=== PATIENT | male | born 1985 | race African-American/Black ===

== ENCOUNTER 2016-10-02 20:11 | Emergency (ER) | payer MEDICAID | END 2016-10-02 22:16 | disposition home or self-care (01) | LOC: D.ER 20:11 | DX: S61.200A Unspecified open wound of right index finger without damage to nail, initial encounter (principal); F17.200 Nicotine dependence, unspecified, uncomplicated ==

== ENCOUNTER 2018-05-27 22:01 | Emergency (ER) | payer MEDICAID ==
[~2018-05-27] VITALS: Ht 182.9 cm; Wt 93.2 kg
[2018-05-27 22:05] VITALS: Ht 182.9 cm; Wt 93.2 kg
[2018-05-27] MEDS ORDERED: BACTROBAN CREAM15 GM TOPICAL (23:22)
[2018-05-27] MEDS ORDERED: SULFAMETHOXAZOL1 TA3 PO (23:22)
[2018-05-27 23:32] VITALS: BP 148/80
== END 2018-05-27 23:32 | disposition home or self-care (01) ==
LOC: D.ER 22:01
DX: L73.2 Hidradenitis suppurativa (principal)

== ENCOUNTER 2019-02-12 00:09 | Observation (INO) | payer SELFPAY ==
[2019-02-12] VITALS (9 sets, daily range): BP systolic 110–140; BP diastolic 73–733; Ht 185.4 cm; Wt 95.5 kg
[~2019-02-12] VITALS: Ht 185.4 cm; Wt 95.5 kg
[~2019-02-12 00:09] MED LIST: BACTROBAN CREAM15 GM TOPICAL; SULFAMETHOXAZOL1 TA3 PO
[2019-02-12 00:37] LABS: BASOPHILS 0.3 % (0-2); HEMATOCRIT 45.9 % (42.0-54.0); HEMOGLOBIN 15.8 g/dL (13.5-17.5); IMMATURE GRANULOCYTES 0.4 % (0-5); LYMPHOCYTES 39.4 % (15-50); MCH 30.3 pg (26.0-34.0); MCHC 34.4 g/dL (31.0-37.0); MCV 88.1 fL (80.0-100.0); NEUTROPHILS 51.9 % (40-80); PLATELET COUNT 271 10x3/uL (130-400); RBC 5.21 10x6/uL (4.20-6.10); RDW 13.4 % (11.5-14.5); WBC 7.4 10x3/uL (4.8-10.8)
[2019-02-12 00:42] LABS: APTT 34.1 SECONDS (22.8-39.4); INR 1.03 (0.85-1.17)
[2019-02-12 00:44] LABS: CALC OSMOLALITY 287 mosm/kg (275-300); CALCIUM 9.1 mg/dL (8.5-10.1); CARBON DIOXIDE 30.8 mmol/L (21.0-32.0); CHLORIDE - SERUM 104 mmol/L (98-107); CREATININE - SERUM 1.4 mg/dL (0.6-1.3); GLUCOSE 147 mg/dL (74-106); POTASSIUM - SERUM 3.7 mmol/L (3.5-5.1); SODIUM 143 mmol/L (136-145); UREA NITROGEN 13 mg/dL (7-18); eGFR NON AFRICAN AMERICAN 63 mL/min (90-120)
[2019-02-12 01:00] LABS: ALKALINE PHOSPHATASE 60 U/L (46-116); ALT (SGPT) 44 U/L (10-68); BILIRUBIN - TOTAL 0.49 mg/dL (0.2-1.3); CKMB 2.4 U/L (0.0-3.6); CREATINE KINASE 599 UL (21-232); MAGNESIUM - SERUM 2.1 mg/dL (1.8-2.4); PROTEIN - SERUM 7.7 g/dL (6.4-8.2)
[2019-02-12 01:04] LABS: TROPONIN-I < 0.017 ng/mL (0.000-0.060)
[2019-02-12 01:13] LABS: ALBUMIN 4.2 g/dL (3.4-5.0)
--- NOTE | 2019-02-12 03:22 | NUR ---
RECIEVED REPORT FROM [facility], PT ARRIVED BY WHEEL CHAIR WITH FAMILY ON ARRIVAL. VSS, AAOX4, NO S/S OF RR DISTRESS. PT COMPLAIN OF CHEST PAIN 8/10, NON-RADIATING. PRN MORPHINE GIVEN. NS INFUSING AT 70MLS/HR. PT PLACED ON TELEMETRY, HR 85, NORMAL SINUS. INITIAL ASSESSMENT COMPLETED. PT IS A GOOD HX. PT DENIES ANY FURTHER NEEDS AT THIS TIME. PT PLACED NPO PER CARDIOLOGY CONSULT. WILL CPOC. CL WITHIN REACH, BED IN LOWEST POSITION.
[2019-02-12 06:09] LABS: BASOPHILS 0.2 % (0-2); EOSINOPHILS 3.5 % (0-7); HEMATOCRIT 44.6 % (42.0-54.0); HEMOGLOBIN 15.1 g/dL (13.5-17.5); IMMATURE GRANULOCYTES 0.3 % (0-5); MCH 29.9 pg (26.0-34.0); MCHC 33.9 g/dL (31.0-37.0); MCV 88.3 fL (80.0-100.0); MEAN PLATELET VOLUME 8.9 fL (7.4-10.4); MONOCYTES 5.7 % (2-11); NEUTROPHILS 45.3 % (40-80); PLATELET COUNT 251 10x3/uL (130-400); RBC 5.05 10x6/uL (4.20-6.10); RDW 13.5 % (11.5-14.5); WBC 6.6 10x3/uL (4.8-10.8)
[2019-02-12 06:34] LABS: ALBUMIN 3.5 g/dL (3.4-5.0); ALKALINE PHOSPHATASE 49 U/L (46-116); ALT (SGPT) 38 U/L (10-68); BILIRUBIN - TOTAL 0.54 mg/dL (0.2-1.3); CALC OSMOLALITY 278 mosm/kg (275-300); CALCIUM 8.5 mg/dL (8.5-10.1); CHLORIDE - SERUM 107 mmol/L (98-107); CREATINE KINASE 458 UL (21-232); CREATININE - SERUM 1.3 mg/dL (0.6-1.3); MAGNESIUM - SERUM 2.1 mg/dL (1.8-2.4); PHOSPHOROUS 4.6 mg/dL (2.5-4.9); POTASSIUM - SERUM 3.9 mmol/L (3.5-5.1); PROTEIN - SERUM 6.8 g/dL (6.4-8.2); SODIUM 140 mmol/L (136-145); TROPONIN-I < 0.017 ng/mL (0.000-0.060); UREA NITROGEN 13 mg/dL (7-18); eGFR NON AFRICAN AMERICAN 68 mL/min (90-120)
[2019-02-12 06:36] LABS: GLUCOSE 91 mg/dL (74-106)
--- NOTE | 2019-02-12 07:10 | NUR ---
REPORT RECEIED FROM [employer] ASSURANCE OFFICER AND PATIENT CARE ASSUMED. PATIENT LAYING IN BED ON BACK AWAKE, ALERT ORIENTED X 4. PATIENT IS STABLE AND VSS. PATIENT DENIES ANY NEEDS OR PAIN. WILL CONTINUE WITH PLAN OF CARE. SR UP X 2 BED IN LOW POSITION AND CALL LIGHT IN REACH.
--- NOTE | 2019-02-12 08:00 | NUR ---
DR ZAVALA IN ROOM. NEW ORDERS RECEVIED.
--- NOTE | 2019-02-12 10:41 | CN ---
PATIENT NAME:RIGO SANCHEZ MEDICAL RECORD: [id number] : 89 LOCATION:D. D.2123 ADMIT DATE: 02/12/19 ACCOUNT: [id number] CONSULTING PHYSICIAN: SARAH ZAVALA MD REFERRING PHYSICIAN: LI ALMEIDA MD DATE OF CONSULTATION: 02/12/2019 DIAGNOSES: 1. Chest pain. 2. Abnormal ECG. 3. Hypertension. 4. Family history of coronary artery disease. HISTORY OF PRESENT ILLNESS: Mr. Sanchez presents with chest pain. His chest pain is atypical. It was sharp. It was definitely positional with changing the position of his left arm. It was a stabbing-like pain. It was centered in the anterior chest. His EKG; however, suggests inferior ischemia with T-wave inversions inferolaterally. He has not had a previous EKG that he knows of. He is not having any chest pain now. His troponin is normal. His chest pain has been going on only for a few weeks. He has had 3 discrete episodes of the pain, each lasting approximately 1 hour, each the same as described. PHYSICAL EXAMINATION: CONSTITUTIONAL/GENERAL APPEARANCE: Well nourished, well developed, appears stated age. EYES: Lids and conjunctivae noninjected. No discharge. No pallor. ENT: Lips within normal limit. No cyanosis. No pallor. NECK: Carotid arteries, bilateral normal upstroke. No bruits. No thrills. No jugular venous pressure or distention. CERVICAL LYMPH NODES: Nontender. Nonenlarged. THYROID: Not enlarged. No nodules. CARDIOVASCULAR: Precordial exam, nondisplaced. No heaves or pericardial thrills. Rate and rhythm, regular. Heart sounds, normal S1, normal S2. No S3, no gallop, no rub. Systolic murmur, not heard. Diastolic murmur, not heard. RESPIRATORY: Respiratory effort, unlabored. Normal curvature. No thoracic deformity. No chest wall tenderness. Percussion, resonant. Auscultation, clear. No wheezes, no rales, no rhonchi. ABDOMEN: Soft, nondistended, nontender. No abdominal pain, no vomiting and normal appetite. MUSCULOSKELETAL: No joint tenderness, normal gait, normal tone. SKIN: Warm and dry. OVERALL IMPRESSION: Chest pain, atypical, but the EKG very abnormal. We will risk stratify with stress test and Cardiolite imaging. TRANSINT:[id number] Voice Confirmation ID: [id number] DOCUMENT ID: [id number] CONSULT REPORT [id number] RIGO SANCHEZ JEFFREY MD at 1041 CC: [id number] DICTATION DATE: 02/12/1949 ASSISTANT DEAN OF STUDENTS: 02/12/19 0857 ADM IN [place] [id number] [place] [address]
--- NOTE | 2019-02-12 12:00 | NUR ---
PATIENT IS STABLE AND VSS. PATIENT DENIES ANY NEEDS OR PAIN. PATIENT TO [facility] FOR STRESS TEST VIA WC ACCOMPANIED BY HOSPITAL PERSONNEL.
--- NOTE | 2019-02-12 13:15 | NUR ---
PATIENT RETURNED FROM [facility] VIA AND [facility]UC [facility] PERSONNEL. PATIENT IS STABLE AND VSS. PATIENT DENIES ANY NEEDS OR PAIN. LUNCH TRAY ORDERED. WILL CONTINUE TO MONITOR SR UP X 2 BED IN LOW POSITION AND MORIS LIGHT IN REACH.
[2019-02-12 14:24] LABS: CKMB 1.6 U/L (0.0-3.6); CREATINE KINASE 422 UL (21-232)
[2019-02-12 14:25] LABS: TROPONIN-I < 0.017 ng/mL (0.000-0.060)
--- NOTE | 2019-02-12 17:31 | NUR ---
PATIENT IS STABLE AND UNCHANGED. PATIENT DENIES ANY NEEDS OR PAIN. FAMILY AT BS. PATIENT TOOK OFF HEART MONITOR AND STATED HE DOES NOT WANT TO WEAR IT ANY MORE. WILL CONTINUE TO MONITOR.
[2019-02-12] MEDS ORDERED: ZESTORETIC 20-1 EACH PO (18:58)
--- NOTE | 2019-02-13 09:02 | MORECARE ---
CASE MANAGEMENT DISCHARGE SUMMARY PATIENT: RIGO SANCHEZ UNIT: [id number] ADM DATE: 02/12/19 AGE: 33 : [birth year] SEX: M ROOM/BED: D.2123 AUTHOR: JOHANNA NELSON PHYSICIAN: REFERRING PHYSICIAN: LI ALMEIDA MD DATE OF SERVICE: 02/13/19 Discharge Plan Patient Name: RIGO SANCHEZ [facility] [facility] 1985 Planned Disposition: Home Anticipated Discharge Date: 02/12/19 Discharge Date: 02/12/2019 Expected LOS: 1 Initial Reviewer: [email or web address] Initial Review Date: 02/13/2019 Generated: 02/13/19 10:02 am Patient Name: RIGO SANCHEZ Page [id number] at 0902 All edits/amendments must be made on the electronic document DICTATION DATE: 02/13/19901 BEHAVIORIST: ZAKIA 02/13/19901 RPT#: [id number] DC DATE:02/12/19 STATUS: DIS IN [facility] [address] [place] [address] END OF REPORT
--- NOTE | 2019-02-17 09:28 | EC ---
PATIENT:RIGO SANCHEZ DATE OF SERVICE: 02/12/19 SEX: M MEDICAL RECORD: [id number] DATE OF : [birth year] LOCATION:D.M2 D.212 AGE OF PATIENT: 33 ADMISSION DATE: 02/12/19 REFERRING PHYSICIAN: INTERPRETING PHYSICIAN: SARAH SALINAS MD ECHOCARDIOGRAM REPORT ECHO CHARGES 4 ECHO COMPLETE Date: 02/12/19 CLINICAL DIAGNOSIS: CHEST PAIN ECHOCARDIOGRAPHIC MEASUREMENTS (adult normal given) AC root (d.<3.7cm) 3.3 cm LV Septum d (<1.2 cm> 1.3 cm Valve Excursion 1.7 cm LV Septum (systole) 1.8 cm Left Atria (s.<4.0cm> 3.2 cm LVPW d(<1.2cm) 1.5 cm RV (d.<2.3cm) 3.6 cm LVPW (sytole) 1.8 cm LV diastole(<5.6CM) 4.6 cm MV E-F(>70mm/sec) cm LV systole 2.8 cm LVOT Diameter 2.1 cm MV exc.(>10mm) 1.6 cm Est.ejection fraction (50-75%) % DOPPLER: LVIT cm/sec A 57.0 cm/sec E 74.0 cm/sec LA cm/sec RVSP 20 mmHg LVOT 87 cm/sec AOP1/2T m/s Asc. Ao 108 cm/sec RVOT 67 cm/sec RA cm/sec PA 90 cm/sec AV Gradient Peak 4.64 mmHg AV Mean 2.39 mmHg AV Area 2.7 cm MV Gradient Peak 3.11 mmHg MV Mean 1.26 mmHg MV Area cm COMMENTS: Assurance Services Manager Health Care: Nathan STEVENSON Hotel Operation Manager: 1 Dr. Salinas TAPE# PACS Pericardial Effusion N DATE OF SERVICE: 02/12/2019 FINDINGS: 1. Left ventricular chamber size is within normal limits. Left ventricular systolic function is normal. Overall ejection fraction estimated at 60%. 2. Left atrium, right atrium, and right ventricular chamber size is within normal limits. 3. Valvular structures have normal structure and motion. 4. Doppler interrogation reveals mild mitral regurgitation, trace tricuspid regurgitation, no other valvular insufficiency or stenosis. Pulmonary systolic ECHOCARDIOGRAM REPORT [id number] RIGO SANCHEZ pressure estimated at 20 mmHg. 5. No evidence of pericardial effusion or left ventricular thrombus. TRANSINT:[id number] Voice Confirmation ID: [id number] DOCUMENT ID: [id number] SARAH SALINAS MD at 0928 CC: [id number] DICTATION DATE: 02/13/19825 CONTRACTOR FIELD HAULING: 02/13/19 0838 DIS IN 02/12/19 [facility] [address] [id number]
--- NOTE | 2019-02-17 09:28 | ST ---
PATIENT:RIGO SANCHEZ MEDICAL RECORD: [id number] SEX: M LOCATION:D. D.212 ORDER #: ADMISSION DATE: 02/12/19 AGE OF PATIENT: 33 REFERRING PHYSICIAN: INTERPRETING PHYSICIAN: SARAH ZAVALA MD DATE OF SERVICE: 02/12/2019 PROCEDURE: Nuclear stress test. INDICATION: Chest pain, abnormal ECG. He was exercised on standard Edilson protocol with 31 mCi of sestamibi injected at peak stress, 10 mCi used previously for rest images. FINDINGS: Gated SPECT reveals preserved ejection fraction at 57% with good wall motion and thickening and brightening throughout all segments. SPECT imaging: Cardiolite was used as myocardial perfusion agent. There is homogeneous uptake throughout all segments at rest and stress with no evidence of inducible ischemia or previous infarction. OVERALL IMPRESSION: 1. This is a normal nuclear stress test with no evidence of inducible ischemia or previous infarction. 2. Gated SPECT reveals a preserved ejection fraction at 57%. In this patient with ongoing symptomatology, the current scan does not suggest the presence of hemodynamically significant coronary artery disease. Evaluate noncardiac etiology of chest pain. TRANSINT:[id number] Voice Confirmation ID: [id number] DOCUMENT ID: [id number] SARAH ZAVALA MD at 0928 CC: [id number] DICTATION DATE: 02/12/19 1705 NONDESTRUCTIVE TESTER: 02/13/19 0658 DIS IN 02/12/19 [facility] [address] [place] [address]
== END 2019-02-12 19:24 | disposition home or self-care (01) ==
LOC: D.ER 00:09 → D.M2 01:00 → OBSVTIME 01:00 → D.M2 19:24
PROVIDERS: Family Medicine; ADMIT Internal Medicine Nephrology; ATTEND Internal Medicine Nephrology
DX: R07.9 Chest pain, unspecified (principal); N17.9 Acute kidney failure, unspecified; F17.200 Nicotine dependence, unspecified, uncomplicated; F12.90 Cannabis use, unspecified, uncomplicated